=== PATIENT | male | born 2000 | race Caucasian/White ===

== ENCOUNTER 2020-07-07 11:26 | Emergency (ER) | payer OTHER, SELFPAY ==
[2020-07-07 12:08] VITALS: BP 116/67; PULSE 62; RESP 16; TEMP 37; O2SAT 100
--- NOTE | 2020-07-07 12:24 | ED.EAR ---
HPI - Ear Problem General Chief complaint: Ear Stated complaint: Ear ache Time Seen by Provider: 07/07/20 12:24 Source: patient Mode of arrival: ambulatory Limitations: no limitations History of Present Illness HPI Narrative: Mykel Rose is a 20 yo male with no PMH who comes to express care with left ear pain that started couple days ago but worsened yesterday after shower. States pain is about 4 out of 10 and is sensitive to manipulation. He has had ear pain in the past and tried to use antibiotic eardrops which did not work well and asked for an oral antibiotic Related Data Allergies Allergy/AdvReac Type Severity Reaction Status Date / Time No Known Allergies Allergy Verified 07/07/20 12:14 Review of Systems Review of Systems: Narrative: CONSTITUTIONAL: Denies fever, chills, sweats. EYES: Denies visual changes, redness, discharge. ENT: Denies rhinorrhea, congestion, sore throat, left otalgia. CARDIOVASCULAR: Denies chest pain, palpitations, edema. RESPIRATORY: Denies dyspnea, wheezing, cough GASTROINTESTINAL: Denies abdominal pain, nausea, vomiting, diarrhea. GENITOURINARY: Denies dysuria, hematuria, abnormal discharge SKIN: Denies rash or itching. NEUROLOGIC: Denies numbness, or focal weakness. PSYCHIATRIC: Denies anxiety or depression. PMFSH Past Medical History Medical History No active medical problems Family History Family History Other Diabetes mellitus Social History Social History (Updated 07/07/20 @ 12:32 by Juana Rosas CNP) Smoking status: Never smoker Alcohol intake: current Gender identity (if verbalized by the patient): Male Comments At time of signature, I agree with nursing past medical, surgical, social and family history. There is no relevant family history pertinent to the presenting complaint. Exam Narrative: Exam Narrative: GENERAL: This is a well-nourished, well-developed patient, in mild distress. HEAD: normocephalic, atraumatic. EYES: Sclera clear/white. Vision is grossly intact. EARS: External ears normal, auditory canals clear on right , erythema and edema without drainage, TMs normal without perforation. Hearing grossly intact. NOSE: External nose normal without nasal discharge, nares without redness, no rhinorrhea. THROAT: Mucous membranes moist, posterior pharynx NECK: Neck supple, non-tender CARDIOVASCULAR: Regular rate and rhythm without murmurs, gallops, or rubs. RESPIRATORY: Clear to auscultation. Breath sounds equal bilaterally. No wheezes, rales, or rhonchi. GASTROINTESTINAL: Abdomen soft, SKIN: warm, intact with no suspicious lesions or rash, good texture and turgor. NEURO: awake, alert, and oriented to person, place and time. There were no obvious focal neurologic abnormalities. Steady gait EXTREMITIES: Normal range of motion. BACK: Nontender without deformity Course Course Emergency Course: Discussed pros and cons eardrops versus antibiotics with patient patient chooses to have oral antibiotic-started on amoxicillin Vital Signs Vital signs: Vital Signs Temperature 98.6 F 07/07/20 12:08 Pulse Rate 62 07/07/20 12:08 Respiratory Rate 16 07/07/20 12:08 Blood Pressure 116/67 07/07/20 12:08 Pulse Oximetry 100 07/07/20 12:08 Temperature 98.6 F 07/07/20 12:08 Pulse Rate 62 07/07/20 12:08 Respiratory Rate 16 07/07/20 12:08 Blood Pressure 116/67 07/07/20 12:08 Pulse Oximetry 100 07/07/20 12:08 Medical Decision Making Differential Diagnosis Differential Diagnosis: Otitis media versus otitis externa versus pharyngitis versus sinusitis Vital Signs Vital Signs: Vital Signs Temperature 98.6 F 07/07/20 12:08 Pulse Rate 62 07/07/20 12:08 Respiratory Rate 16 07/07/20 12:08 Blood Pressure 116/67 07/07/20 12:08 Pulse Oximetry 100 07/07/20 12:08 Temperature 98.6 F 07/07/20 12:08
== END 2020-07-07 12:36 | disposition home or self-care (01) ==
PROVIDERS: Emergency Provider Nurse Practitioner
DX: H66.002 Acute suppurative otitis media without spontaneous rupture of ear drum, left ear (principal)
CPT/HCPCS: 99213; G0463